=== PATIENT | female | born 1980 | race Caucasian/White ===

== ENCOUNTER 2023-07-24 12:29 | Outpatient (OUT) | payer OTHER, SELFPAY ==
--- NOTE | 2023-07-24 12:40 | XR_ITS ---
The [address] [address] Patient Name: KAREEM MONTOYA MRN: [id number] date: 1980 Sex: F Assigned Patient Location: [facility] Current Patient Location: RAD Accession/Order Number: [id number] Exam Date: 07/24/2023 12:45 Report Date: 07/24/2023 13:14 At the request of: JUANPABLO DALTON Procedure: XR chest 2V EXAM: XR chest 2V HISTORY: shortness of breath r06.02 persistent cough r05.3 COMPARISON: None. TECHNIQUE: PA and lateral views of the chest. FINDINGS: The cardiomediastinal silhouette is normal. No focal consolidation is identified. There is no pneumothorax. No pleural effusion is noted. The osseous structures are intact. XR/XR chest 2V IMPRESSION: No acute cardiopulmonary process. Electronically authenticated by: PRAKASH BENTON Date: 07/24/2023 13:14
== END 2023-07-24 12:30 | disposition home or self-care (01) ==
LOC: RAD 12:33
PROVIDERS: PCP Physician Assistant; Visit Provider Physician Assistant
DX: R06.02 Shortness of breath (principal); R05.3 Chronic cough
CPT/HCPCS: 71046